=== PATIENT | female | born 1990 | race Caucasian/White ===

== ENCOUNTER 2020-11-25 18:11 | Emergency (ER) | payer BC ==
[2020-11-25 20:18] LABS: #Eosinphils 0.1 10x3/uL (0.0-0.5); #Monocytes 0.8 10x3/uL (0.0-1.1); #Neutrophils 7.9 10x3/uL (1.5-8.4); %Basophils 0.4 % (0.0-2.0); %Lymphocytes 20.5 % (18.0-47.0); %Monocytes 7.3 % (0.0-10.0); Hemoglobin 13.3 g/dL (12.0-15.5); Mean Corpuscular HGB CONC 33.4 g/dL (32.0-36.0); Mean Corpuscular Hemoglobin 32.2 pg (27.0-33.0); Mean Corpuscular Volume 96.4 fl (81.6-98.3); Mean Platelet Volume 11.3 fl (7.4-10.4); Platelet Count 162 10x3/uL (150-450); RBC Distribution Width 12.7 % (11.5-14.5); Red Blood Cell (RBC) Count 4.13 10x6/uL (3.90-5.03); White Blood Cell (WBC) Count 11.3 10x3/uL (3.5-10.5)
[2020-11-25 20:20] LABS: Bilirubin Neg (Negative); Blood, Urine 25 (Negative); Clarity Clear (Clear); Glucose, Urine (Dipstick) Normal (Negative); Ketone, Urine Negative (Negative); Leukocyte 25 (Negative); Nitrite Negative (Negative); Protein, Urine (Dipstick) Negative (Neg-Trace); Specific Gravity, Urine 1.015 (1.002-1.036); Urobilinogen Normal mg/dL (Less than 2)
[2020-11-25 20:30] LABS: ALT (SGPT) 14 U/L (8-55); AST (SGOT) 16 U/L (5-34); Albumin 4.1 g/dL (3.5-5.0); Alkaline Phosphatase 61 U/L (40-110); Anion Gap 13 mmol/L (10-20); BUN (Urea Nitrogen) 10 mg/dL (7.0-18.7); Bilirubin, Total 0.3 mg/dL (0.2-1.2); Calc. Creatinine Clearance 0 mL/min (70-130); Calcium 9.4 mg/dL (7.8-10.44); Carbon Dioxide 22 mmol/L (22-29); Chloride 105 mmol/L (98-107); Globulin 3.5 g/dL (2.4-3.5); Glucose 89 mg/dL (70-105); Potassium 3.8 mmol/L (3.5-5.1); Protein, Total 7.6 g/dL (6.0-8.3); Sodium 136 mmol/L (136-145)
[2020-11-25 20:37] LABS: RBC/HPF 0-3 HPF (0-3); WBC/HPF 0-3 HPF (0-3)
[2020-11-25 20:38] LABS: Bacteria/HPF Rare-Few HPF (None Seen); Squamous Epithelial 0-3 HPF (0-3)
== END 2020-11-25 20:50 | disposition home or self-care (01) ==
LOC: CSHERS 18:11
DX: O20.0 Threatened abortion (principal); Z3A.13 13 weeks gestation of pregnancy
CPT/HCPCS: 36415; 80053; 81003; 81015; 84702; 85025; 86900; 86901

== ENCOUNTER 2020-12-14 11:19 | Emergency (ER) | payer BC | END 2020-12-14 14:16 | disposition home or self-care (01) | LOC: CSHERS 11:19 | DX: O99.891 Other specified diseases and conditions complicating pregnancy (principal); R10.2 Pelvic and perineal pain; Z3A.16 16 weeks gestation of pregnancy ==

== ENCOUNTER 2021-05-14 06:15 | Inpatient (IN) | payer BC ==
[2021-05-14 07:25] VITALS: BMI 32.5
[2021-05-14] MEDS ORDERED: NS w/ Oxytocin 30 units 500 ML ONE (08:02)
[2021-05-14] MEDS ORDERED: Penicillin G Potassium 5 MILL.UNITS VIAL ONE (08:02)
[2021-05-14 08:41] LABS: Hemoglobin 13.3 g/dL (12.0-15.5); Mean Corpuscular HGB CONC 33.8 g/dL (32.0-36.0); Mean Corpuscular Hemoglobin 32.3 pg (27.0-33.0); Mean Corpuscular Volume 95.4 fl (81.6-98.3); Mean Platelet Volume 13.1 fl (7.4-10.4); Platelet Count 106 10x3/uL (150-450); RBC Distribution Width 13.6 % (11.5-14.5); Red Blood Cell (RBC) Count 4.12 10x6/uL (3.90-5.03); White Blood Cell (WBC) Count 9.5 10x3/uL (3.5-10.5)
[2021-05-14] MEDS ORDERED: Lidocaine 1% (PF) 30 ML VIAL SC PRN (08:44)
[2021-05-14] MEDS ORDERED: Acetaminophen 500 MG TAB PO PRN (08:44)
[2021-05-14] MEDS ORDERED: hydrALAZINE 20 MG/ML VIAL SLOW IVP PRN ×2 (08:44→21:10)
[2021-05-14] MEDS ORDERED: Butorphanol Tartrate 1 MG/ML VIAL SLOW IVP PRN (08:44)
[2021-05-14] MEDS ORDERED: Misoprostol 200 MCG TAB PR PRN (08:44)
[2021-05-14] MEDS ORDERED: Ondansetron PF 4 MG/2 ML Vial IVP PRN ×3 (08:44→21:10)
[2021-05-14] MEDS ORDERED: Promethazine HCl 25 MG/ML VIAL IM PRN ×2 (08:44→13:28)
[2021-05-14] MEDS ORDERED: Lactated Ringer's 1,000 ML IV SCH (08:45)
[2021-05-14] MEDS ORDERED: NS w/ Oxytocin 30 units 500 ML IV SCH ×3 (08:45→21:10)
[2021-05-14] MEDS ORDERED: Penicillin G Potassium 5 MILL.UNITS in Sodium Chloride 0.9% 100 ML IVPB SCH (09:00)
[2021-05-14 09:12] LABS: HIV (1/2) Antibody/Antigen Non-Reactive (NonReactive); HIV 1/2 INDEX 0.09 S/CO (<1.00)
[2021-05-14 09:13] LABS: Syphilis Antibody Nonreactive (Nonreactive); Syphilis Antibody Index 0.03 S/CO (<1.00 Non-Reactive)
[2021-05-14] MEDS ORDERED: Fentanyl 2 mcg/Bup 0.1% Cadd 100 ML ONE (12:55)
[2021-05-14] MEDS ORDERED: Penicillin G 2.5 MILL.units 2.5 MILL.UNITS in Premix Bag 1 BAG IVPB SCH (13:00)
[2021-05-14] MEDS ORDERED: Lactated Ringer's 500 ML IV PRN (13:28)
[2021-05-14] MEDS ORDERED: Acetaminophen 325 MG TAB PO PRN (13:28)
[2021-05-14] MEDS ORDERED: Naloxone HCl 0.4 mg/ml Vial IVP PRN ×2 (13:28)
[2021-05-14] MEDS ORDERED: ePHEDrine Sulfate 50 MG/10 ML VIAL SLOW IVP PRN (13:28)
[2021-05-14] MEDS ORDERED: diphenhydrAMINE 50 MG/ML VIAL IVP PRN (13:28)
[2021-05-14] MEDS ORDERED: Hydrocerin (Eucerin) Cream 120 gm Jar TOP PRN (13:28)
[2021-05-14] MEDS ORDERED: Fentanyl 2 mcg/Bupivacaine 0.1% Cassette 100 ML EPIDURAL SCH (13:30)
[2021-05-14] MEDS ORDERED: Communication Order-Pharmacy FS SCH (13:30)
[2021-05-14] MEDS ORDERED: Misoprostol 200 MCG TAB ONE (17:07)
[2021-05-14] MEDS ORDERED: Ibuprofen 800 MG TAB PO PRN (21:10)
[2021-05-14] MEDS ORDERED: Milk Of Magnesia 30 ML UDCUP PO PRN (21:10)
[2021-05-14] MEDS ORDERED: Benzocaine-Menthol 82.5 ML CAN TOP PRN (21:10)
[2021-05-14] MEDS ORDERED: Methylergonovine 0.2 MG/ML VIAL IM PRN (21:10)
[2021-05-14] MEDS ORDERED: Bisacodyl 10 MG SUPP PR PRN (21:10)
[2021-05-14] MEDS ORDERED: Misoprostol 200 MCG TAB VAG PRN (21:10)
[2021-05-14] MEDS ORDERED: Lanolin Ointment 7 GM TUBE TOP PRN (21:10)
[2021-05-14] MEDS ORDERED: Docusate Calcium (SURFAK) 240 MG CAP PO SCH ×2 (21:10→22:00)
[2021-05-14] MEDS ORDERED: Boostrix 0.5 ML (Tdap) VIAL IM ONE (21:10)
[2021-05-14] MEDS: Ibuprofen 800 MG TAB PO PRN (22:04)
[2021-05-15] MEDS: HYDROcodone/Acetaminophen 5/325 mg Tablet PO PRN ×2 (02:36→09:00)
[2021-05-15] MEDS: Ibuprofen 800 MG TAB PO PRN ×3 (05:19→21:31)
[2021-05-15 05:37] LABS: Hemoglobin 11.8 g/dL (12.0-15.5); Mean Corpuscular HGB CONC 33.7 g/dL (32.0-36.0); Mean Corpuscular Hemoglobin 32.9 pg (27.0-33.0); Mean Corpuscular Volume 97.5 fl (81.6-98.3); Mean Platelet Volume 12.6 fl (7.4-10.4); Platelet Count 107 10x3/uL (150-450); RBC Distribution Width 13.6 % (11.5-14.5); Red Blood Cell (RBC) Count 3.59 10x6/uL (3.90-5.03)
[2021-05-15] MEDS ORDERED: Bupivacaine PF 0.5% 30 ML VIAL ONE (06:00)
[2021-05-15] MEDS ORDERED: ePHEDrine Sulfate 50 MG/10 ML VIAL ONE (06:00)
[2021-05-15 07:13] LABS: HBSAg Index 0.19 S/CO (0-0.99); Hep B Surf Ag NonReactive S/CO (NonReactive)
[2021-05-15] MEDS: Prenatal Vitamin 1 TAB PO SCH (09:00)
[2021-05-15] MEDS: Docusate Calcium (SURFAK) 240 MG CAP PO SCH ×2 (09:00→21:32)
[2021-05-15] MEDS: Ferrous Sulfate 325 MG TAB PO SCH ×2 (09:01→14:41)
[2021-05-15 16:59] LABS: HBSAB Concentration Less than 8.00 mIU/mL; Hep B Surf AB Non-Reactive (NonReactive)
[2021-05-16] MEDS: Ferrous Sulfate 325 MG TAB PO SCH (07:33)
[2021-05-16 08:00] VITALS: BP 118/68; TEMP 98.8
[2021-05-16] MEDS: Prenatal Vitamin 1 TAB PO SCH (08:50)
[2021-05-16] MEDS: Docusate Calcium (SURFAK) 240 MG CAP PO SCH (08:50)
== END 2021-05-16 14:40 | disposition home or self-care (01) | DRG 807 ==
LOC: CSHLD 06:15 → CSHPP 20:30
PROVIDERS: ADMIT Obstetrics & Gynecology; ATTEND Obstetrics & Gynecology
PROC: 3E033VJ Introduction of Other Hormone into Peripheral Vein, Percutaneous Approach (ICD-10-PCS; principal; 2021-05-14)
PROC: 10E0XZZ Delivery of Products of Conception, External Approach (ICD-10-PCS; 2021-05-14)
PROC: 0HQ9XZZ Repair Perineum Skin, External Approach (ICD-10-PCS; 2021-05-14)
DX: O36.5930 Maternal care for other known or suspected poor fetal growth, third trimester, not applicable or unspecified (principal); Z37.0 Single live birth; O70.0 First degree perineal laceration during delivery; Z3A.38 38 weeks gestation of pregnancy
CPT/HCPCS: 36415; 51701; 85027; 86706; 86780; 86850; 86900; 86901; 87340; 87389; 88307; 99285; J2540; J2590; S0020